=== PATIENT | male | born 1955 | race Caucasian/White ===

== ENCOUNTER 2016-09-24 08:41 | Emergency (ER) | payer OTHER ==
--- NOTE | 2016-09-30 14:44 | ER ---
ADMIT: 09/24/2016 RM/LOC: ER [facility] MR#: [id number] [address] [facility] [address] [place] [id number] CALVIN AGUILAR [address] [facility] [place] [address] Emergency Room Report SEX: M AGE: 61 : 1955 DATE: 09/24/2016 ADDENDUM: CHIEF COMPLAINT: Laceration to the left 2nd finger. HISTORY OF PRESENT ILLNESS: This is a 61-year-old who said he was trying to cut off the top of a plastic bottle last night with a serrated knife and hit his finger. He waited until this morning to go to the [place]. They saw a partial tendon laceration, so sent him here to the emergency room. We did speak with Dr. King regarding this. He will follow up the patient this week. I did suture repair and send him home with an extensor splint, having him ice, use Tylenol, Motrin for pain, Keflex to prevent any kind of infection and again follow up with Dr. King this week. CLINICAL IMPRESSION: Laceration of the 2nd finger at the PIP joint with involvement of the tendon. ERLINDA Apodaca / Freddie Borrero MD / cal JOB #: [id number] CC: Freddie Borrero MD, Attending Physician [facility] Physician, Family Physician
== END 2016-09-24 10:15 | disposition home or self-care (01) ==
LOC: ER 08:41
PROC: 0HQGXZZ Repair Left Hand Skin, External Approach (ICD-10-PCS; principal; 2016-09-24)
DX: S56.422A Laceration of extensor muscle, fascia and tendon of left index finger at forearm level, initial encounter (principal); I10 Essential (primary) hypertension; E78.5 Hyperlipidemia, unspecified; W26.8XXA Contact with other sharp object(s), not elsewhere classified, initial encounter; Y92.009 Unspecified place in unspecified non-institutional (private) residence as the place of occurrence of the external cause